=== PATIENT | female | born 1985 | race Caucasian/White ===

== ENCOUNTER 2023-10-01 12:05 | Emergency (ER) | payer OTHER, SELFPAY ==
[2023-10-01 12:10] VITALS: BP 118/72; PULSE 71; TEMP 36.4; O2SAT 97; BMI 43.9
--- NOTE | 2023-10-01 13:06 | ED.GENADUL1 ---
HPI HPI - General Adult General Chief complaint: Extremity Problem, Nontraumatic Stated complaint: LEFT BREAST PAIN Time Seen by Provider: 10/01/23 12:20 Source: patient Mode of arrival: walk-in History of Present Illness HPI narrative: The patient presented to us with a evaluation for possible lump in her left breast that she noted in the last few days, the last menstruation was 3 days ago. She denies any trauma or fall she also denies any history of breast cancer in the family Patient does not have any fever or chills and she mentioned that she does not have any primary care Related Data Allergies Allergy/AdvReac Type Severity Reaction Status Date / Time No Known Drug Allergies Allergy Verified 10/01/23 12:14 Opioid HPI Opioid Management Most Recent Opioid Data: Last Pain Scale 8 10/01/23 12:16 Review of Systems ROS Status of ROS 10 or more systems reviewed and unremarkable except as noted in history and below Exam Narrative Exam Narrative: Nurses notes and vital signs reviewed and patient is not hypoxic. Breast examination was not able to appreciate the lump but the patient was pointing to tenderness in the left lower half of the breast and there was no inversion of the nipple there was no signs of trauma there was no redness hotness or any tenderness on palpation General: Well-appearing and in no apparent distress. Skin: Warm, dry, no pallor noted. No rash. Head: Normocephalic, atraumatic. Neck: Supple, non-tender. Eye: Pupils are equal, round and EOMI. No scleral icterus. Ears, Nose, Mouth, and Throat: TM are clear, no nasal mucosal hypertrophy. Oral mucosa is moist, no posterior oropharynx erythema, uvula is mid-line Cardiovascular: Regular Rate and Rhythm without murmur, gallop or rub. Respiratory: No accessory muscle use or respiratory distress. Lungs are clear to auscultation, no wheezing, rales or rhonchi Chest Wall: no tenderness Back: No midline thoracic or lumbar vertebral tenderness. No CVA tenderness Musculoskeletal: normal ROM, no calf or popliteal tenderness, no lower extremity edema/swelling GI: Abdomen is soft, non-distended. Normal bowel sounds. No masses appreciated. No tenderness to palpation. No rebound, guarding, or rigidity noted. Neurological: A&O x4. No cranial nerve dysfunction observed. No truncal ataxia. Moves all extremities. Sensation intact. Psychiatric: Cooperative and interactive. Normal mood and affect. Constitutional Vital Signs, click to edit/add: Last Vital Signs Temp 97.6 F 10/01/23 12:10 Pulse 71 10/01/23 12:10 Resp 16 10/01/23 12:10 BP 118/72 10/01/23 12:10 Pulse Ox 97 10/01/23 12:10 O2 Del Method Room Air 10/01/23 12:10 Course Vital Signs Vital signs: Vital Signs Temperature 97.6 F 10/01/23 12:10 Pulse Rate 71 10/01/23 12:10 Respiratory Rate 16 10/01/23 12:10 Blood Pressure 118/72 10/01/23 12:10 Pulse Oximetry 97 10/01/23 12:10 Oxygen Delivery Method Room Air 10/01/23 12:10 Temperature 97.6 F 10/01/23 12:10 Pulse Rate 71 10/01/23 12:10 Respiratory Rate 16 10/01/23 12:10 Blood Pressure 118/72 10/01/23 12:10 Pulse Oximetry 97 10/01/23 12:10 Oxygen Delivery Method Room Air 10/01/23 12:10 Medical Decision Making MDM Narrative Medical decision making narrative: Right now the patient presentation is mostly secondary to fibrocystic changes but still the patient will be referred to primary care as outpatient to obtain a mammogram The patient is to follow up with primary care physician in next 2-3 days or to return to the emergency department should any of the signs or symptoms worsen or new symptoms develop. The patient agrees with the following Diagnosis and Treatment plan and the patient will be discharged home. Discharge Plan Discharge Stand Alone Forms: Portal Instructions Chief Complaint: Extremity Problem, Nontraumatic Clinical Impression: Breast lump Qualifiers: Laterality: left Breast mass location: lower outer quadrant Qualified Code(s): N63.23 - Unspecified lump in the left breast, lower outer quadrant Patient Disposition: Home, Self-Care Time of Disposition Decision: 12:42 Condition: Good Print Language: Tajik Instructions: Breast Self Exam for Women (ED), Fibrocystic Breast Changes (ED) Referrals: Physician,Non-Staff, MD [Primary Care Provider] - 1 week Discharge Date/Time: 10/01/23 12:53
== END 2023-10-01 12:53 | disposition home or self-care (01) ==
PROVIDERS: Emergency Provider Emergency Medicine
DX: N63.23 Unspecified lump in the left breast, lower outer quadrant (principal)
CPT/HCPCS: 99281

== ENCOUNTER 2023-11-06 13:45 | Outpatient (OUT) | payer OTHER, SELFPAY ==
--- NOTE | 2023-11-06 13:47 | MM_ITS ---
Patient Name: JORDYN VERDUGO MR#: [id number] : 1985 Exam Date: 11/06/2023 Ordering Doctor: ERIK AVILA CNP RADIOLOGY REPORT PROCEDURE: MM TOMOSYNTHESIS DIAGNOSTIC BI, 11/06/2023, 13:49 US BREAST LT LIMITED, 11/06/2023, 14:05 COMPARISON: None. INDICATIONS: BREAST LUMP N63.0 Calculator Name NCI Breast Cancer Risk Assessment Tool 5 Year Breast Cancer Risk 0.30% Lifetime Breast Cancer Risk 10.00% Personal Breast Cancer No Personal Ovarian Cancer No Treatments None Family Cancers None LOCATION: [facility] BREAST COMPOSITION: The breasts are heterogeneously dense,which may obscure small masses. FINDINGS: DIAGNOSTIC CATEGORY 0--INCOMPLETE: NEED ADDITIONAL IMAGING EVALUATION. The breasts are medium in size. RIGHT BREAST: No significant suspicious finding. LEFT BREAST: There is focal ill-defined increased density in the upper outer quadrant segmental in distribution deep to the area of the patient's palpable abnormality, while this could represent asymmetric fibroglandular tissue, lobular carcinoma should be excluded. Additionally identified is a 5 x 3 mm well-circumscribed reniform nodule in the upper outer quadrant, no focal abnormality identified on ultrasound to correspond to the mammographic findings. MRI follow-up is recommended RECOMMENDATIONS: BREAST MRI: BILATERAL BREASTS PLEASE NOTE: A NORMAL MAMMOGRAM DOES NOT EXCLUDE THE POSSIBILITY OF BREAST CANCER. A CLINICALLY SUSPICIOUS PALPABLE LUMP SHOULD BE BIOPSIED. Dictated by: Rodrigo Stanford MD on 11/06/2023 at 15:29 Approved by: Rodrigo Stanford MD on 11/06/2023 at 15:32
--- OUTSIDE RECORDS SUMMARY | 2023-11-06 13:59 | XMS_ITS | CCD ---
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 above: Performed By: #### A NION, SHCG, CBCWD, BMP, EGFR1, ETOHS, OSMOL #### [address] [address] ABS NEUTROPHILS 11.9 thou/mm3 High 1.8-7.7 [facility] Comment on above: Performed By: #### A NION, SHCG, CBCWD, BMP, EGFR1, ETOHS, OSMOL #### [address] [address] Basophils/100 WBC (Bld) 0.2 % Normal [facility] Comment on above: Performed By: #### A NION, SHCG, CBCWD, BMP, EGFR1, ETOHS, OSMOL #### [address] [address] Eosinophils/100 WBC (Bld) 0.3 % Normal [facility] Comment on above: Performed By: #### A NION, SHCG, CBCWD, BMP, EGFR1, ETOHS, OSMOL #### [address] [address] Erythrocyte distribution width (RBC) [Ratio] 14.4 % Normal 11.5-14.5 [facility] Comment on above: Performed By: #### A NION, SHCG, CBCWD, BMP, EGFR1, ETOHS, OSMOL #### [address] [address] Hematocrit (Bld) [Volume fraction] 41.2 % Normal 37.0-47.0 [facility] Comment on above: Performed By: #### A NION, SHCG, CBCWD, BMP, EGFR1, ETOHS, OSMOL #### [address] [address] Hemoglobin (Bld) [Mass/Vol] 13.3 g/dL Normal 12.0-16.0 [facility] Comment on above: Performed By: #### A NION, SHCG, CBCWD, BMP, EGFR1, ETOHS, OSMOL #### [address] [address] IMMATURE GRANS (IG) 0.5 % Normal [facility] Comment on above: Performed By: #### A NIRAFAEL, SHCG, CBCWD, BMP, EGFR1, ETOHS, OSMOL #### [address] [address] Lymphocytes/100 WBC (Bld) 9.8 % Normal [facility] Comment on above: Performed By: #### A NION, SHCG, CBCWD, BMP, EGFR1, ETOHS, OSMOL #### [address] [address] MCH (RBC) [Entitic mass] 27.3 pg Normal 26.0-33.0 [facility] Comment on above: Performed By: #### A NION, SHCG, CBCWD, BMP, EGFR1, ETOHS, OSMOL #### [address] [address] MCHC (RBC) [Mass/Vol] 32.3 g/dL Normal 32.2-35.5 [facility] Comment on above: Performed By: #### A NION, SHCG, CBCWD, BMP, EGFR1, ETOHS, OSMOL #### [address] [address] MCV (RBC) [Entitic vol] 84.6 fL Normal 81.0-99.0 [facility] Comment on above: Performed By: #### A NION, SHCG, CBCWD, BMP, EGFR1, ETOHS, OSMOL #### [address] [address] Monocytes/100 WBC (Bld) 6.6 % Normal [facility] Comment on above: Performed By: #### A NION, SHCG, CBCWD, BMP, EGFR1, ETOHS, OSMOL #### [address] [address] Neutrophils/100 WBC (Bld) 82.6 % Normal [facility] Comment on above: Performed By: #### A NION, SHCG, CBCWD, BMP, EGFR1, ETOHS, OSMOL #### [address] [address] NRBC 0 /100 wbc Normal [facility] Comment on above: Performed By: #### A NION, SHCG, CBCWD, BMP, EGFR1, ETOHS, OSMOL #### [address] [address] PLATELET 277 thou/mm3 Normal 130-400 [facility] Comment on above: Performed By: #### A NION, SHCG, CBCWD, BMP, EGFR1, ETOHS, OSMOL #### [address] [address] Platelet mean volume (Bld) [Entitic vol] 10.3 fL Normal 9.4-12.4 [facility] Comment on above: Performed By: #### A NION, SHCG, CBCWD, BMP, EGFR1, ETOHS, OSMOL #### [address] [address] RBC 4.87 mill/mm3 Normal 4.20-5.40 [facility] Comment on above: Performed By: #### A NION, SHCG, CBCWD, BMP, EGFR1, ETOHS, OSMOL #### [address] [address] RDW-SD 44.1 fL Normal 35.0-45.0 [facility] Comment on above: Performed By: #### A NION, SHCG, CBCWD, BMP, EGFR1, ETOHS, OSMOL #### [address] [address] WBC 14.4 thou/mm3 High 4.8-10.8 [facility] Comment on above: Performed By: #### A NION, SHCG, CBCWD, BMP, EGFR1, ETOHS, OSMOL #### [facility] [address] [place] [address] CBC with Auto Differentialon 07-13-2023 Basophils (Bld) [#/Vol] 0.0 10*3/uL [facility] Basophils/100 WBC (Bld) 0.2 % [facility] Eosinophils Absolute 0.0 [facility] Eosinophils/100 WBC (Bld) 0.3 % [facility] Erythrocyte distribution width (RBC) [Entitic vol] 44.1 fL 35.0 - 45.0 fL [facility] Erythrocyte distribution width (RBC) [Ratio] 14.4 % 11.5 - 14.5 % [facility] Hematocrit (Bld) [Volume fraction] 41.2 % 37.0 - 47.0 % [facility] Hemoglobin (Bld) [Mass/Vol] 13.3 g/dL [facility] Immature granulocytes (Bld) [#/Vol] 0.07 10*3/uL [facility] Immature granulocytes/100 WBC (Bld) 0.5 % [facility] Interpretation and review of laboratory results Abnormal [facility] Lymphocytes Absolute 1.4 [facility] Lymphocytes/100 WBC (Bld) 9.8 % [facility] MCH (RBC) [Entitic mass] 27.3 pg 26. 0 - 33.0 pg [facility] MCHC (RBC) [Mass/Vol] 32.3 g/dL [facility] MCV (RBC) [Entitic vol] 84.6 fL 81.0 - 99.0 fL [facility] Monocytes Absolute 1.0 [facility] Monocytes/100 WBC (Bld) 6.6 % [facility] Neutrophils Absolute 11.9 High [facility] Neutrophils/100 WBC (Bld) 82.6 % [facility] Nucleated RBC/100 WBC (Bld) [Ratio] 0 % /100 wbc [facility] Comment on above: Performed at [facility] [address] [place] [address] Platelet mean volume (Bld) [Entitic vol] 10.3 fL 9.4 - 12.4 fL [facility] Platelets (Bld) [#/Vol] 277 10*3/uL [facility] RBC (Bld) [#/Vol] 4.87 10*6/uL [facility] WBC (Bld) [#/Vol] 14.4 10*3/uL High [facility] DRUG ABUSE SCREENon 07-13-19 24 AMPHETAMINE/METHAMPH Negative Normal NEGATIVE [facility] Comment on above: Performed By: #### A SABA, CATARINAG, CBCWD, BMP, EGFR1, ETOHS, OSMOL #### [facility] [email or web address] [address] [place] [address] BARBITURATE Negative Normal NEGATIVE [facility] Comment on above: Performed By: #### A SABA, JARRED, CBCWD, BMP, EGFR1, ETOHS, OSMOL #### [facility] [email or web address] [address] [place] [address] Benzodiazepines Ql (U) Negative Normal NEGATIVE [facility] Comment on above: Performed By: #### A SABA, CATARINAG, CBCWD, BMP, EGFR1, ETOHS, OSMOL #### [facility] [email or web address] [address] [place] [address] Cannabinoids Screen Ql (U) Positive Normal NEGATIVE [facility] Comment on above: Performed By: #### A SABA, SHCG, CBCWD, BMP, EGFR1, ETOHS, OSMOL #### [facility] [email or web address] [address] [place] [address] COCAINE METABOLITE Positive Normal NEGATIVE [facility] Comment on above: Performed By: #### A SABA, CATARINAG, CBCWD, BMP, EGFR1, ETOHS, OSMOL #### [facility] [address] [place] [address] FENTANYL Positive Normal NEGATIVE [facility] Comment on above: Result Comment: A N egative result for a drug abuse screen test indicates that the drug concentration is below the following cutoffs: Amphetamine/Methamphetamine 1000 ng/ml Barbiturate 200 ng/ml Benzodiazapine 200 ng/ml Cannabinoids 50 ng/ml Cocaine Metabolite 300 ng/ml Opiates 300 ng/ml Oxycodone 100 ng/ml Phencyclidine 25 ng/ml Fentanyl 5 ng/ml A Positive result for a drug abuse screen test should be considered presumptive positive until/unless confirmed by another method. (Additional request) Quantitative values from a reference laboratory are available upon additional request. These results are for medical use only. Performed By: #### A SABA, SHCG, CBCWD, BMP, EGFR1, ETOHS, OSMOL #### [facility] [address] [place] [address] Opiates Ql (U) Negative Normal NEGATIVE [facility] Comment on above: Performed By: #### A SABA, SHCG, CBCWD, BMP, EGFR1, ETOHS, OSMOL #### [facility] [address] [place] [address] OXYCODONE Negative Normal NEGATIVE [facility] Comment on above: Performed By: #### A SABA, SHCG, CBCWD, BMP, EGFR1, ETOHS, OSMOL #### [facility] [address] [place] [address] Phencyclidine Ql (U) Negative Normal NEGATIVE [facility] Comment on above: Performed By: #### A SABA, SHCG, CBCWD, BMP, EGFR1, ETOHS, OSMOL #### [facility] [address] [place] [address] EKG 12-LEADon 07-13-2023 EKG 12-LEAD 113 113 182 88 324 444 60 86 70 Sinus tachycardia Possible Left atrial enlargement Borderline ECG No previous ECGs available Confirmed by RIKKI DUMONT ([id number]) on 07/14/2023 7:12:43 AM [email or web address]&Date=13-07-2023&Ti me=[email or web address]& TestType=ECG&Site=3&O utputType=PDF&Ext=PDF Normal [facility] ETHYL ALCOHOL BLOODon 2023 ETHYL ALCOHOL BLOOD 0.12 % Normal 0.00 [facility] Comment on above: Performed By: #### A SABA, SHCG, CBCWD, BMP, EGFR1, ETOHS, OSMOL #### [facility] [address] [place] [address] ETOHon 07-13-2023 Ethanol [Mass/Vol] 0.12 % 0.00 [facility] Comment on above: Performed at [facility] [address] [place] [address] GFR, ESTIMATEDon 07-13-2023 GFR/1.73 sq M.predicted MDRD (S/P/Bld) [Vol rate/Area] mL/min/{1.73_m2} Normal >60 [facility] Comment on above: Result Comment: Alisson atric calculator link https://www.kidney.org/professionals/kdoqi/gfr_calculatorped Effective Nov 18, 2021 These results are not intended for use in patients <18 years of age. eGFR results are calculated without a race factor using the 2020 CKD-EPI equation. Careful clinical correlation is recommended, particularly when comparing to results calculated using previous equations. The CKD-EPI equation is less accurate in patients with extremes of muscle mass, extra-renal metabolism of creatinine, excessive creatine ingestion, or following therapy that affects renal tubular secretion. Performed By: #### A SABA, SHCG, CBCWD, BMP, EGFR1, ETOHS, OSMOL #### [address] [address] Glomerular Filtration Rate, Estimatedon 07-13-2023 GFR/1.73 sq M.predicted MDRD (S/P/Bld) [Vol rate/Area] mL/min/{1.73_m2} - PINF [facility] Comment on above: Pediatric calculator link https://www.kidney.org/professionals/kdoqi/gfr_calculatorped Effective Nov 18, 2021 These results are not intended for use in patients <18 years of age. eGFR results are calculated without a race factor using the 2020 CKD-EPI equation. Careful clinical correlation is recommended, particularly when comparing to results calculated using previous equations. The CKD-EPI equation is less accurate in patients with extremes of muscle mass, extra-renal metabolism of creatinine, excessive creatine ingestion, or following therapy that affects renal tubular secretion. Performed at [facility] [address] [place] [address] HCG Qualitative, Serumon Beta HCG ( test) Ql Negative NEGATIVE [facility] Comment on above: Performed at [facility] [address] [place] [address] No Panel Informationon 07-12 [facility] Osmolalityon 07-13-2023 Osmolality Calc [Osmolality] 277.0 [facility] Comment on above: Performed at [facility] [address] [place] [address] TEST SERUMon 07-12 TEST SERUM Negative Normal NEGATIVE [facility] Comment on above: Performed By: #### A NION, SHCG, CBCWD, BMP, EGFR1, ETOHS, OSMOL #### [facility] [email or web address] [address] [place] [address] URINALYSIS W/ MICROon 2023 BACTERIA FEW Normal FEW/NONE SEEN [facility] Comment on above: Performed By: #### U WMIC #### [facility] [address] [place] [address] EPITHELIAL 15-20 Normal 3-5/hpf [facility] Comment on above: Performed By: #### U WMIC #### [facility] [address] [place] [address] MISCELLANEOUS TRICHOMONAS Normal [facility] Comment on above: Performed By: #### U WMIC #### [facility] [address] [place] [address] MUCOUS THREADS Normal NONE SEEN/THREA [facility] Comment on above: Performed By: #### U WMIC #### [facility] [address] [place] [address] RENAL EPITHELIAL NONE Normal NONE SEEN [facility] Comment on above: Performed By: #### U WMIC #### [facility] [address] [place] [address] CASTS >15 HYALINE Normal NONE SEEN [facility] Comment on above: Performed By: #### U WMIC #### [facility] [address] [place] [address] Crystals LM Nom (Urine sed) NONE SEEN Normal NONE SEEN [facility] Comment on above: Performed By: #### U WMIC #### [facility] [address] [place] [address] RBC 3-5 Normal 0-2/hpf [facility] Comment on above: Performed By: #### U WMIC #### [facility] [address] [facility] [place] [address] WBC 50-75 Normal 0-4/hpf [facility] Comment on above: Performed By: #### U WMIC #### [facility] [address] [place] [address] [place] [address] YEAST NONE SEEN Normal NONE SEEN [facility] Comment on above: Performed By: #### U WMIC #### [facility] [address] [place] [address] [place] [address] Bilirubin Ql (U) Negative Normal NEGATIVE [facility] Comment on above: Performed By: #### U WMIC #### [facility] [address] [place] [address] [place] [address] CHARACTER CLOUDY Abnormal CLR-SL.CLOUD [facility] Comment on above: Performed By: #### U WMIC #### [facility] [address] [place] [address] [place] [address] Color (U) YELLOW Normal YELLOW-STRAW [facility] Comment on above: Performed By: #### U WMIC #### [facility] [address] [place] [address] [place] [address] Glucose Ql (U) Negative Normal NEGATIVE [facility] Comment on above: Performed By: #### U WMIC #### [facility] [address] [place] [address], [place] [address] Hemoglobin Ql (U) MODERATE Abnormal NEGATIVE [facility] Comment on above: Performed By: #### U WMIC #### [facility] [address] [place] [address] [place] [address] Ketones Ql (U) TRACE Abnormal NEGATIVE [facility] Comment on above: Performed By: #### U WMIC #### [facility] [address] [place] [address], [place] [address] LEUKOCYTES MODERATE Abnormal NEGATIVE [facility] Comment on above: Performed By: #### U WMIC #### [address] [address] Nitrite Ql (U) Negative Normal NEGATIVE [facility] Comment on above: Performed By: #### U WMIC #### [facility] [address] [place] [address] pH (U) 6.0 [pH] Normal 5.0 - 9.0 [facility] Comment on above: Performed By: #### U WMIC #### [address] [address] Protein Ql (U) TRACE Abnormal NEGATIVE [facility] Comment on above: Performed By: #### U WMIC #### [address] [address] Specific gravity (U) [Rel density] 1.022 Normal 1.002-1.030 [facility] Comment on above: Performed By: #### U WMIC #### [address] [address] Urobilinogen Qn (U) 0.2 {Bull'U}/dL Normal 0.0 - 1. 0 [facility] Comment on above: Performed By: #### U WMIC #### [address] [address] URINE CULTUREon 07-13-2023 Bacteria identified Cx Nom (U) MICROBIOLOGY REPORT [facility], [address] [place] [address], [address] PATIENT: CINDY VARGAS LOCATION: [place] [address] : 1985 AGE: 38 SEX: F ADM: 07/13/23 Att. Physician: CHAD LARIOS Order Id: [id number] Req. Physician: CHAD LARIOS Source: urine, clean catch Site: Collected: 07/13/23 20:45 Current Antibiotics: not stated Antibiotics comment: STATUS OF ORDERED AND REPORTED TESTS URINE CULTURE FINAL 07/14/23 URINE CULTURE FINAL 07/14/23 13:35 07/14/23 No significant pathogens isolated. Growth likely represents skin juliana or distal urethral juliana. Organism 00 Growth of Contaminants Normal [facility] Comment on above: Performed By: #### U WMIC #### [facility] [address] [place] [address] Urinalysis dipstick W Reflex Microscopic panel (U)on 07-13-2023 Bacteria, UA FEW FEW/NONE SEEN [facility] Bilirubin Ql (U) Negative NEGATIVE [facility] Casts LM.LPF (Urine sed) [#/Area] >15 HYALINE NONE SEEN /lpf [facility] Character (U) CLOUDY Abnormal CLR-SL.CLOUD [facility] Color (U) YELLOW YELLOW-STRAW [facility] Crystals LM Ql (Urine sed) NONE SEEN NONE SEEN [facility] Epithelial Cells, UA 15-20 3-5/hpf /hpf [facility] Epithelial cells.renal LM.HPF (Urine sed) [#/Area] NONE NONE SEEN [facility] Fungi.yeastlike LM Ql (Urine sed) NONE SEEN NONE SEEN [facility] Glucose Auto test strip Ql (U) Negative NEGATIVE mg/dl [facility] Hemoglobin Auto test strip Ql (U) MODERATE Abnormal NEGATIVE [facility] Interpretation and review of laboratory results Abnormal [facility] Ketones Auto test strip Ql (U) TRACE Abnormal NEGATIVE [facility] Leukocyte esterase Auto test strip Ql (U) MODERATE Abnormal NEGATIVE [facility] Miscellaneous Lab Test Result TRICHOMONAS [facility] Comment on above: Performed at [facility] [address] [place] [address] Mucus Ql (Urine sed) THREADS NONE SEEN/THREA [facility] Nitrite Auto test strip Ql (U) Negative NEGATIVE [facility] pH (U) 6.0 [pH] 5.0 - 9.0 [facility] Protein (U) [Mass/Vol] TRACE Abnormal NEGAT ANGELA mg/dl [facility] RBC LM.HPF (Urine sed) [#/Area] 3-5 0-2/hpf /hpf [facility] Specific gravity Refractometry automated (U) [Rel density] 1.022 1.002 - 1.030 [facility] Urobilinogen Ql (U) 0.2 [facility] WBC LM.HPF (Urine sed) [#/Area] 50-75 0-4/hpf /hpf [facility] Urine Drug Screenon 07-13-19 24 Amphetamines Screen Ql (U) Negative NEGATIVE [facility] Barbiturates Screen Ql (U) Negative NEGATIVE [facility] Benzodiazepines Ql (U) Negative NEGATIVE [facility] Benzoylecgonine Screen Ql (U) Positive NEGATIVE [facility] Cannabinoids Screen Ql (U) Positive NEGATIVE [facility] Fentanyl Positive NEGATIVE [facility] Comment on above: A Negative result for a drug abuse screen test indicates that the drug concentration is below the following cutoffs: Amphetamine/Methamphetamine 1000 ng/ml Barbiturate 200 ng/ml Benzodiazapine 200 ng/ml Cannabinoids 50 ng/ml Cocaine Metabolite 300 ng/ml Opiates 300 ng/ml Oxycodone 100 ng/ml Phencyclidine 25 ng/ml Fentanyl 5 ng/ml A Positive result for a drug abuse screen test should be considered presumptive positive until/unless confirmed by another method. (Additional request) Quantitative values from a reference laboratory are available upon additional request. These results are for medical use only. Performed at [facility] [address] [place] [address] Opiates Screen Ql (U) Negative NEGATIVE [facility] Oxycodone Negative NEGATIVE [facility] Phencyclidine Ql (U) Negative NEGATIVE [facility] Clinical Summaryon 2022 ED Clinical Summary [address] [id number] ED Clinical Summary Person Information Name: Cindy Gallagher Susannah Hannah/[facility] Age: 37 Years : 1985 Sex: Female PCP: Marital Status: Phone: Race: White Ethnicity: Not or Language: Turkish Visit Reason: Cough; Pain in tooth; Pain in ear; cough, tooth infection, ear ache Acuity: 4 Enc Type: Emergency Med Service: Emergency Medicine Arrival: 10/05/2022 15:51:48 Discharge: 10/05/2022 17:45:00 LOS: 000 01:54 Checkin: 10/05/2022 15:51:48 Checkout: 10/05/2022 17:45:00 Dispo Type: Home or Self Care Address: [address] [facility] [address] Provider Notes: Diagnosis: 1:Acute otitis media, left; 2:Dental infection; 3:Pain, dental Problems No Problems Documented Smoking Status: Smoking Status 10 or more cigarettes (1/2 pack or more)/day in last 30 days Functional Status: Sensory Deficits: History of Falls: Mobility Assistance Prior to Admission: ADLs: Current Level of Assistance for Self-Care/Mobility: Cognitive Status: Allergies No Known Medication Allergies Laboratory or Other Results This Visit (last charted value for your 10/05/2022 visit) No Laboratory or Other Results This Visit Measurements: Height: Weight: 96.7 kg Blood Pressure: /86 mmHg BMI: Procedures No Procedures Documented Immunizations No Immunizations Documented This Visit Final Med List: New Medications [id number], [address] [place], [place] [id number], [phone] acetaminophen (Tylenol 325 mg oral tablet) 2 Tabs Oral (given by mouth) every 6 hours as needed as needed for pain for 7 Days. not to exceed 3000 mg/day. Refills: 0. Last Dose: ____ amoxicillin-clavulana te (Augmentin 875 mg-125 mg oral tablet) 1 Tabs Oral (given by mouth) 2 times a day for 14 Days. Refills: 0. Last Dose: ____ chlorhexidine topical (Peridex 0.12% mucous membrane liquid) 15 Milliliter Oral (given by mouth) 2 times a day for 7 Days. swish and spit; do not swallow. Refills: 0. Last Dose: ____ diphenhyd/lidocaine/A Chapito/MgOH/simeth topical (FIRST Mouthwash BLM mucous membrane suspension) 15 Milliliter Oral (given by mouth) 4 times a day as needed mouth sore pain for 7 Days. Refills: 0. Last Dose: ____ ibuprofen (ibuprofen 200 mg oral tablet) 2 Tabs Oral (given by mouth) every 6 hours as needed as needed for pain for 7 Days. Refills: 0. Last Dose: ____ [id number], [address], [place] [id number], [phone] acetaminophen (Tylenol 325 mg oral tablet) 2 Tabs Oral (given by mouth) every 6 hours as needed as needed for pain for 7 Days. not to exceed 3000 mg/day. Refills: 0. amoxicillin-clavulana te (Augmentin 875 mg-125 mg oral tablet) 1 Tabs Oral (given by mouth) 2 times a day for 14 Days. Refills: 0. chlorhexidine topical (Peridex 0.12% mucous membrane liquid) 15 Milliliter Oral (given by mouth) 2 times a day for 7 Days. swish and spit; do not swallow. Refills: 0. diphenhyd/lidocaine/A Chapito/MgOH/simeth topical (FIRST Mouthwash BLM mucous membrane suspension) 15 Milliliter Oral (given by mouth) 4 times a day as needed mouth sore pain for 7 Days. Refills: 0. ibuprofen (ibuprofen 200 mg oral tablet) 2 Tabs Oral (given by mouth) every 6 hours as needed as needed for pain for 7 Days. Refills: 0. Care Team Members: Attending Physician: René Gutierrez Consulting Physician: Referring Physician: Provider Role Assigned Unassigned René Gutierrez ED MidLevel 10/05/2022 16:00:56 Follow up: With: Address: When: Please make sure you keep your appointment with dental care provider, as planned for extraction of teeth in the next 12 days. With: Address: When: Please contact physician referral line to establish care with PCP, unless previously scheduled appointment will be. With: Address: When: If you develop uncontrolled pain, despite use of ssxt-ctu-uirpnne agents as prescribed, progressive difficulty breathing, chest discomfort, mental status change, bleeding, return for acute evaluation. With: Address: When: OTC pain control -adult Tylenol/Motrin Comments: Recommend use of iosu-zqf-suawhpi agents such as acetaminophen, 650 mg, by mouth, every 6 hours as needed. If taking 1,000mg dose, then only take acetaminophen every 8 hours/3 times per day, not to exceed 3000 mg of acetaminophen daily. May use ibuprofen, 400-600mg, by mouth, every 6 hours as needed; use caution not to consume NSAIDs for extended duration. With: Address: When: *Physician Referral Line Comments: Contact Physician Referral Line at [phone] to schedule your first visit and establish with a Primary Care Provider With: Address: When: *Emergency Department , only if needed Comments: Return to the Emergency Department immediately for any new or worsening symptoms (more content not included)... Normal [facility] ED Note-Physicianon 10-06-19 ED Note-Physician Chief Complaint PT states she seen mobile clinic on at [facility] and dx with left ear infection and respiratory infection and was suppose to be prescribed antibiotic and inhaler. Pt states they never prescribed it and now right ear is hurting with tooth History of Present Illness Patient is a 37-year-old female who presents to the emergency department regarding dental pain, left upper maxillary region, approximately near tooth #2 and 3, as well as significant ear pain on left ear, and now some ear discomfort in right ear. She describes her pain is currently 10 out of 10. She describes she is currently staying at the [facility], she was seen by a provider at the visiting clinic was planned to be started on antibiotics, however no prescription was sent. She is currently on a treatment for hepatitis C, she thinks starts with M (likely Mavyret) but she does know the exact name. Due to finances, she has not used any Tylenol or ibuprofen, for symptom control, however she has not been able to afford them. No fever or chills. Mild changes to respiratory status, without progressive dyspnea, no chest pain. She has a mild cough. She denies any nausea or vomiting. No hemoptysis or hematemesis. No changes to bladder or bowel control function. She has had a tubal ligation in the past, no concern for . Last menstrual cycle was approximately 1 week ago. Review of Systems Negative other than pertinent positives on the above HPI Physical Exam CONSTITUTIONAL: [well appearing, in mild distress] SKIN: [Warm, dry, and intact without rash] EYES: [extraocular movements are grossly intact, clear conjunctiva] HENT: Mouth: evaluation of upper right maxillary region approximately near tooth #2-3, erythema and mild edema seen in gingival region. Without significant bulging. Left TM, erythema and bulging is identified. Right TM, no erythema or bulging is appreciated. [Normocephalic, atraumatic] NECK: [no obvious swelling, normal range of motion] PULMONARY: [normal chest rise and fall, no respiratory distress or stridor CARDIOVASCULAR: [regular rate, distal extremities are warm and well perfused] GASTROINSTESTINAL: [nondistended, non-tender] GENITOURINARY: [deferred] NEUROLOGIC: [normal speech, moves all extremities] MUSCULOSKELETAL: [no gross deformities, atraumatic] PSYCHIATRIC: [normal mood and affect] Vitals & Measurements T: 37.1 ?C (Oral) HR: 69 (Peripheral) RR: 22 BP: 134/86 SpO2: 97% HT: 162.2 cm WT: 96.7 kg (Dosing) Additional Vitals No qualifying data available. Procedure No qualifying data available. ASA Documentation Medical Decision Making This report has been created using voice recognition software. It may contain minor errors which are inherent in voice recognition technology. Patient Presentation: Patient is a 37-year-old female who presents to the emergency department regarding dental pain, left upper maxillary region, approximately near tooth #2 and 3, as well as significant ear pain on left ear, and now some ear discomfort in right ear. She describes her pain is currently 10 out of 10. She describes she is currently staying at the [facility], she was seen by a provider at the visiting clinic was planned to be started on antibiotics, however no prescription was sent. She is currently on a treatment for hepatitis C, she thinks starts with M (likely Mavyret) but she does know the exact name. Due to finances, she has not used any Tylenol or ibuprofen, for symptom control, however she has not been able to afford them. No fever or chills. Mild changes to respiratory status, without progressive dyspnea, no chest pain. She has a mild cough. She denies any nausea or vomiting. No hemoptysis or hematemesis. No changes to bladder or bowel control function. She has had a tubal ligation in the past, no concern for . Last menstrual cycle was approximately 1 week ago. Initial MDM: Patient is an adult female who otherwise appears stable, in mild distress. Physical examination reveals: HENT: Mouth: evaluation of upper right maxillary region approximately near tooth #2-3, erythema and mild edema seen in gingival region. Without significant bulging. Left TM, erythema and bulging is identified. Right TM, no erythema or bulging is appreciated. [Normocephalic, atraumatic] NECK: [no obvious swelling, normal range of motion] Discussed with patient we will proceed with medication management. Differential Diagnosis: Acute otitis media, dental infection, dental pain, dental caries Data and analysis: ? Patients chart reviewed historically as needed ED Course / Patient Re-evaluation: Patient was administered Toradol 30 mg, IM, x1. Reviewed with in-house pharmacist patient's current hepatitis C treatment, Mavyret prescription, and if potential interactions may arise with additional prescribed medications. First BLM oral solution, 15 mL, p.o., to be used 4 times per day as needed for comfort. Augmentin 875/125 (more content not included)... Normal [facility] Laboratory - Microbiology an d Antimicrobial susceptibilityOrdered By: Concetta Aguirre on 03-07-2021 SARS-CoV-2 (COVID-19) RNA CUCA+probe Ql (Resp) Not detected (Not Detected ) [facility] Work Phone: Comment on above: Note: This nucleic a yara amplification test was developed and itsperformance characteristics determined by [facility]. Nucleic acid amplification tests include RT-PCR and TMA. This test has not been FDA cleared orapproved. This test has been authorized by FDA under anEmergency Use Authorization (EUA). This test is onlyauthorized for the duration of time the declaration thatcircumstances exist justifying the authorization of theemergency use of in vitro diagnostic tests for detection [id number] virus and/or diagnosis of COVID-19 infectionunder section 564(b)(1) of the Act, 21 U.S.C. 360bbb-3(b)(1), unless the authorization is terminated or revokedsooner.When diagnostic testing is negative, the possibility of afalse negative result should be considered in the contextof a patient's recent exposures and the presence ofclinical signs and symptoms consistent with COVID-19. Anindividual without symptoms of COVID-19 and who is notshedding SARS-CoV-2 virus would expect to have a negative(not detected) result in this assay. SARS-CoV-2 (COVID-19) RNA CUCA+probe Ql (Unsp spec) Performed [facility] Work Phone: HCV RNA,Quant,PCRon 08-28-19 21 HCV RNA,Quant,PCR Specimen Description .PLASMA Special Requests NOT REPORTED Direct Exam HCV RNA NOT DETECTED This test is a sensitive method for quantitating HCV RNA viral loads in plasma. It utilizes RT-PCR in the FDA approved Amandeep Ampliprep/Taqman 48 System. This test is intended for detecting and quantifying HCV RNA viral loads in the range of 15 IU/mL to 20,000,000 IU/mL (1.18 log IU/mL to 7.30 log IU/mL). Patients should have confirmed HCV infection prior to RNA quantification. This test has been developed to monitor disease progression and efficacy of anti-HCV drug therapy. This test has been optimized for HCV genotypes 1-6. Report Status FINAL 08/27/2020 Normal [facility] Comment on above: Performed By: #### H CVQ #### [facility] [address] [place], [place] [phone] Nursing Educator: Werner Kaye MD [facility] [address] [place] [address] [place] [address] Nursing Educator: Little Otoole MD CBCon 08-21-2020 Erythrocyte distribution width (RBC) [Ratio] 15.9 % High 11.8-14.4 [facility] Comment on above: Performed By: #### C P, CBC, HCG #### [facility] [address] [place] [address] Nursing Educator: Little Otoole MD #### HIVCMB, PHEP #### [facility] [employer] [address] [place] [address] Nursing Educator: Werner Kaye MD Hematocrit (Bld) [Volume fraction] 38.5 % Normal 36.3-47.1 [facility] Comment on above: Performed By: #### C P, CBC, HCG #### [address] [place] [phone] Nursing Educator: Little Otoole MD #### HIVCMB, PHEP #### [address] [phone] Nursing Educator: Werner Kaye MD Hemoglobin (Bld) [Mass/Vol] 11.8 g/dL Low 11.9-15.1 [facility] Comment on above: Performed By: #### C P, CBC, HCG #### [address] [place] [phone] Nursing Educator: Little Otoole MD #### HIVCMB, PHEP #### [address] [id number] Nursing Educator: Werner Kaye MD MCH (RBC) [Entitic mass] 23.9 pg Low 25.2-33.5 [facility] Comment on above: Performed By: #### C P, CBC, HCG #### [address] [place] [address] Nursing Educator: Little Otoole MD #### HIVCMB, PHEP #### [address] [id number] Nursing Educator: Werner Kaye MD MCHC (RBC) [Mass/Vol] 30.6 g/dL Normal 28.4-34.[address] [facility] Comment on above: Performed By: #### C P, CBC, HCG #### [address] [place] [address] Nursing Educator: Little Otoole MD #### HIVCMB, PHEP #### [address] [id number] Nursing Educator: Werner Kaye MD MCV (RBC) [Entitic vol] 78.1 fL Low 82.6-102.9 M [facility] Comment on above: Performed By: #### C P, CBC, HCG #### [address] [place] [address] Nursing Educator: Little Otoole MD #### HIVCMB, PHEP #### [address] [phone] Nursing Educator: Werner Kaye MD NRBC Automated 0.0 per 100 WBC Normal 0.0 [facility] Comment on above: Performed By: #### C P, CBC, HCG #### [address] [place] [phone] Nursing Educator: Little Otoole MD #### HIVCMB, PHEP #### [place] [address] Nursing Educator: Werner Kaye MD Platelet mean volume (Bld) [Entitic vol] 9.6 fL Normal 8.1-13.5 [facility] Comment on above: Performed By: #### C P, CBC, HCG #### [address] [place] [id number] Nursing Educator: Little Otoole MD #### HIVCMB, PHEP #### [place] [address] Nursing Educator: Werner Kaye MD Platelets (Bld) [#/Vol] 271 10*3/uL Normal 138-453 [facility] Comment on above: Performed By: #### C P, CBC, HCG #### [address] [place] [address] Nursing Educator: Little Otoole MD #### HIVCMB, PHEP #### [address] [id number] Nursing Educator: Werner Kaye MD RBC (Bld) [#/Vol] 4.93 10*6/uL Normal 3.95-5.11 [facility] Comment on above: Performed By: #### C P, CBC, HCG #### [facility] [address] [place] [address] Nursing Educator: Little Otoole MD #### HIVCMB, PHEP #### [facility] [address] [place], [place] [phone] Nursing Educator: Werner Kaye MD WBC (Bld) [#/Vol] 5.9 10*3/uL Normal 3.5-11.3 [facility] Comment on above: Performed By: #### C P, CBC, HCG #### [address] [place] [address] Nursing Educator: Little Otoole MD #### HIVCMB, PHEP #### [facility] [address] [place], [place] [phone] Nursing Educator: Werner Kaye MD Comp Metabolic Profon 2020 (cont.) [facility] Comment on above: Result Comment: Aver age GFR for 30-39 years old: 107 mL/min/1.73sq m Chronic Kidney Disease: <60 mL/min/1.73sq m Kidney failure: <15 mL/min/1.73sq m eGFR calculated using average adult body mass. Additional eGFR calculator available at: http://www.[employer].com/multiple_crcl_2012.htm Performed By: #### C P, CBC, HCG #### [facility] [address] [place] [address] [place] [address] Nursing Educator: Little Otoole MD #### HIVCMB, PHEP #### [facility] [address] [place], [place] [phone] Nursing Educator: Werner Kaye MD Albumin [Mass/Vol] 3.5 g/dL Normal 3.5-5.2 [facility] Comment on above: Performed By: #### C P, CBC, HCG #### [facility] [address] [place], [place] [phone] Nursing Educator: Little Otoole MD #### HIVCMB, PHEP #### [address] [address] Nursing Educator: Werner Kaye MD Albumin/Glob Ratio 1.1 Normal 1.0-2.5 [facility] Comment on above: Performed By: #### C P, CBC, HCG #### [facility] [address] [place], [place] [phone] Nursing Educator: Little Otoole MD #### HIVCMB, PHEP #### [address] [phone] Nursing Educator: Werner Kaye MD Alkaline Phos 56 U/L Normal 35-104 [facility] Comment on above: Performed By: #### C P, CBC, HCG #### [facility] [address] [place], [place] [phone] Nursing Educator: Little Otoole MD #### HIVCMB, PHEP #### [address] [address] Nursing Educator: Werner Kaye MD ALT [Catalytic activity/Vol] 24 U/L Normal 5-33 [facility] Comment on above: Performed By: #### C P, CBC, HCG #### [facility] [address] [place], [place] [phone] Nursing Educator: Little Otoole MD #### HIVCMB, PHEP #### [address] [address] Nursing Educator: Werner Kaye MD Anion gap [Moles/Vol] 9 mmol/L Normal 9-[address] [facility] Comment on above: Performed By: #### C P, CBC, HCG #### [facility] [address] [place], [place] [phone] Nursing Educator: Little Otoole MD #### HIVCMB, PHEP #### [address] [address] Nursing Educator: Werner Kaye MD AST [Catalytic activity/Vol] 57 U/L High <32 [facility] Comment on above: Performed By: #### C P, CBC, HCG #### [facility] [address] [place], [place] [phone] Nursing Educator: Little Otoole MD #### HIVCMB, PHEP #### [address] [address] Nursing Educator: Werner Kaye MD Bilirubin [Mass/Vol] 0.32 mg/dL Normal 0.3-1.2 [facility] Comment on above: Performed By: #### C P, CBC, HCG #### [facility] [address] [place], [place] [phone] Nursing Educator: Little Otoole MD #### HIVCMB, PHEP #### [address] [address] Nursing Educator: Werner Kaye MD BUN/CRE Ratio 14 Normal 9-20 [facility] Comment on above: Performed By: #### C P, CBC, HCG #### [facility] [address] [place], [place] [phone] Nursing Educator: Little Otoole MD #### HIVCMB, PHEP #### [address] [address] Nursing Educator: Werner Kaye MD Calcium [Mass/Vol] 9.3 mg/dL Normal 8.6-10.4 [facility] Comment on above: Performed By: #### C P, CBC, HCG #### [facility] [address] [place], [place] [phone] Nursing Educator: Little Otoole MD #### HIVCMB, PHEP #### [place] [id number] [place], [place] [phone] Nursing Educator: Werner Kaye MD Chloride [Moles/Vol] 98 mmol/L Normal 98-107 [facility] Comment on above: Performed By: #### C P, CBC, HCG #### [facility] [address] [place] [address] Nursing Educator: Little Otoole MD #### HIVCMB, PHEP #### [address] [phone] Nursing Educator: Werner Kaye MD CO2 [Moles/Vol] 27 mmol/L Normal 20-31 [facility] Comment on above: Performed By: #### C P, CBC, HCG #### [facility] [address] [place] [address] Nursing Educator: Little Otoole MD #### HIVCMB, PHEP #### [address] [phone] Nursing Educator: Werner Kaye MD Creatinine [Mass/Vol] 0.66 mg/dL Normal 0.50-0.[address] [facility] Comment on above: Performed By: #### C P, CBC, HCG #### [facility] [address] [place] [address] Nursing Educator: Little Otoole MD #### HIVCMB, PHEP #### [address] [phone] Nursing Educator: Werner Kaye MD GFR, Amer >60 Normal >60 [facility] Comment on above: Performed By: #### C P, CBC, HCG #### [facility] [address] [place], [place] [phone] Nursing Educator: Little Otoole MD #### HIVCMB, PHEP #### [place] [id number] [place], [place] [phone] Nursing Educator: Werner Kaye MD GFR,non Amer >60 Normal >60 [facility] Comment on above: Performed By: #### C P, CBC, HCG #### [address] [place], [place] [phone] Nursing Educator: Little Otoole MD #### HIVCMB, PHEP #### [address] [phone] Nursing Educator: Werner Kaye MD Glucose [Mass/Vol] 106 mg/dL High 70-99 [facility] Comment on above: Performed By: #### C P, CBC, HCG #### [address] [place], [place] [phone] Nursing Educator: Little Otoole MD #### HIVCMB, PHEP #### [address] [phone] Nursing Educator: Werner Kaye MD Potassium [Moles/Vol] 3.7 mmol/L Normal 3.7-5.[address] [facility] Comment on above: Performed By: #### C P, CBC, HCG #### [address] [place], [place] [phone] Nursing Educator: Little Otoole MD #### HIVCMB, PHEP #### [address] [phone] Nursing Educator: Werner Kaye MD Protein [Mass/Vol] 6.6 g/dL Normal 6.4-8.3 [facility] Comment on above: Performed By: #### C P, CBC, HCG #### [address] [place], [place] [phone] Nursing Educator: Little Otoole MD #### HIVCMB, PHEP #### [place] [address] [place], [place] [phone] Nursing Educator: Werner Kaye MD Sodium [Moles/Vol] 134 mmol/L Low 135-144 [facility] Comment on above: Performed By: #### C P, CBC, HCG #### [address] [place], [place] [phone] Nursing Educator: Little Otoole MD #### HIVCMB, PHEP #### [address] [phone] Nursing Educator: Werner Kaye MD Staging: Normal [facility] Comment on above: Result Comment: Stag e 1: Some kidney damage normal GFR Stage 2: Mild kidney damage GFR 60-89 Stage 3: Moderate kidney damage GFR 30-59 Stage 4: Severe kidney damage GFR 15-29 Stage 5: Severe kidney damage GFR <15 ESRD - chronic treatment by dialysis or transplant Performed By: #### C P, CBC, HCG #### [address] [place], [place] [phone] Nursing Educator: Little Otoole MD #### HIVCMB, PHEP #### [address] [address] Nursing Educator: Werner Kaye MD Urea nitrogen [Mass/Vol] 9 mg/dL Normal 6-20 [facility] Comment on above: Performed By: #### C P, CBC, HCG #### [address] [place], [place] [phone] Nursing Educator: Little Otoole MD #### HIVCMB, PHEP #### [address] [phone] Nursing Educator: Werner Kaye MD HCG Screen, Bloodon 08-22-19 21 HCG Screen, Blood Negative Normal [facility] [place] Comment on above: Result Comment: Spec imens with hCG levels near the threshold of the test (25 mIU/mL) may give a negative or indeterminate result. In such cases, another test should be performed with a new specimen in 48-72 hours. If early is suspected clinically in this setting, correlation with quantitative serum b-hCG level is suggested. [facility] has confirmed the use of plasma for this test. This has not been cleared or approved by the U.S. Food and Drug Administration. The FDA has determined that such clearance is not necessary. Performed By: #### C P, CBC, HCG #### [address] [place] [address] Nursing Educator: Little Otoole MD #### HIVCMB, PHEP #### [address] [phone] Nursing Educator: Werner Kaye MD HIV Ag/Abon 08-21-2020 HIV Ag/Ab Non-Reactive Normal NR [facility] Comment on above: Result Comment: No l aboratory evidence of HIV infection. If acute HIV infection is suspected, consider testing for HIV-1 RNA. Performed By: #### C P, CBC, HCG #### [address] [place] [address] Nursing Educator: Little Otoole MD #### HIVCMB, PHEP #### [address] [phone] Nursing Educator: Werner Kaye MD Hepatitis Acute [facility] 08-21 Hep A Ab,IgM Non-Reactive Normal NR [facility] Comment on above: Performed By: #### C P, CBC, HCG #### [address] [place] [address] Nursing Educator: Little Otoole MD #### HIVCMB, PHEP #### [address] [phone] Nursing Educator: Werner Kaye MD Hep B Core Ab,IgM Non-Reactive Normal [facility] Comment on above: Performed By: #### C P, CBC, HCG #### [facility] [address] [place] [address] [place] [address] Nursing Educator: Little Otoole MD #### HIVCMB, PHEP #### [address] [phone] Nursing Educator: Werner Kaye MD Hep B Surf Ag Non-Reactive Normal [facility] Comment on above: Performed By: #### C P, CBC, HCG #### [address] [place] [address] Nursing Educator: Little Otoole MD #### HIVCMB, PHEP #### [address] [phone] Nursing Educator: Werner Kaye MD Hep C Ab Reactive Abnormal [facility] Comment on above: Result Comment: The hepatitis C procedure used in our laboratory is a Chemiluminescent test specific for three recombinant HCV antigens. A negative anti-HCV result indicates that the antibodies to hepatitis C virus are not present at this time. Individuals with reactive anti-HCV should be considered infected and infectious until proven otherwise. Confirmation of all equivocal or reactive results is recommended by ordering HCV RNA by PCR. Results reported to the appropriate Health Department Performed By: #### C P, CBC, HCG #### [address] [place] [address] Nursing Educator: Little Otoole MD #### HIVCMB, PHEP #### [id number] [place] [address] Nursing Educator: Werner Kaye MD INFLUENZA A AND B AGon 03-28 INFLUANEGH SEE BELOW Normal [facility] Comment on above: Result Comment: Nega tive for Flu A protein angiten. Infection due to Flu A cannot be ruled out. Flu A angiten in the sample may be below the detection limit of the test. Performed By: #### I NFLUAB ####[facility] [id number] [place] INFLUBNEGH SEE BELOW Normal [facility] Comment on above: Result Comment: Nega tive for Flu B protein antigen. Infection due to Flu B cannot be ruled out. Flu B antigen in the sample may be below the detection limit of the test. Performed By: #### I NFLUAB ####[facility] [id number] INFLUENZA A AG Negative Normal NEGATIVE SEE COMMENT [facility] Comment on above: Performed By: #### I NFLUAB ####[facility] Sjvil[address] INFLUENZA B AG Negative Normal NEGATIVE SEE COMMENT [facility] Comment on above: Performed By: #### I NFLUAB ####[facility] [address] [place] [address] INTERNAL CONTROLS Within Normal Limits Normal Wi thin Normal Limits [facility] Comment on above: Performed By: #### I NFLUAB ####[facility] [address] [place] [address] XR CHEST 2 Von 03-28-2017 XR CHEST 2 [address] [place] [address] Patient: CINDY MONROE Exam Date: 03/28/2017DOB: 1985 Gender:F : ODILIA ZENG Admission #: [id number] : Order #: [id number] HERE TO VIEW EXAM RADIOLOGY REPORT PROCEDURE: RADIOGRAPH CHEST 2 VIEWS COMPARISON: None. INDICATIONS: Acute shortness of breath, wheezing and cough FINDINGS: LUNGS: No significant pulmonary parenchymal abnormalities. VASCULATURE: No increased pulmonary vasculature. PLEURA: No pneumothorax, effusion, or pleural thickening. CARDIAC: No cardiomegaly or cardiac silhouette abnormality. MEDIASTINUM: No visible mass or adenopathy. BONES: No fracture or visible bone lesion. OTHER: Negative. CONCLUSION: No acute disease. Dictated by: Little Garcia M.D. on 03/29/2017 at 07:19 Approved by: Little Garcia M.D. on 03/29/2017 at 07:[address] [facility] STREP SCREEN CONFIRMATIONon 09-16-2016 STREP SCREEN CONFIRMATION Culture Observ ations: Final; See scanned report to follow in HPF Normal [facility] Comment on above: Performed By: #### S SCRN, STREPC ####[facility] [id number] [place] STREPT SCREENon 09-16-2016 STREP SCREEN A Negative Normal NEGATIVE [facility] Comment on above: Performed By: #### S SCRN, STREPC ####[facility] [id number] [place] Vital Signs Date Time Vital Sign Value Performing Clinician Payton fowler 08-27-2023 21:03-0400 Diastolic blood pressure 74 mm[Hg] [facility] 08-27-2023 21:03-0400 Heart rate 78 /min [facility] 08-27-2023 21:03-0400 Mean blood pressure 91 mm[Hg] [facility] 08-27-2023 21:03-0400 Respiratory rate 16 /min [facility] 08-27-2023 21:03-0400 SaO2% (BldA) [Mass fraction] 97 % [facility] 08-27-2023 21:03-0400 Systolic blood pressure 126 mm[Hg] [facility] 08-27-2023 20:31-0400 Diastolic blood pressure 69 mm[Hg] [facility] 08-27-2023 20:31-0400 Heart rate 80 /min [facility] 08-27-2023 20:31-0400 Mean blood pressure 82 mm[Hg] [facility] 08-27-2023 20:31-0400 Respiratory rate 16 /min [facility] 08-27-2023 20:31-0400 SaO2% (BldA) [Mass fraction] 94 % [facility] 08-27-2023 20:31-0400 Systolic blood pressure 109 mm[Hg] [facility] 08-27-2023 20:00-0400 Diastolic blood pressure 80 mm[Hg] [facility] 08-27-2023 20:00-0400 Heart rate 73 /min [facility] 08-27-2023 20:00-0400 Mean blood pressure 93 mm[Hg] [facility] 08-27-2023 20:00-0400 SaO2% (BldA) [Mass fraction] 98 % [facility] 08-27-2023 20:00-0400 Systolic blood pressure 120 mm[Hg] [facility] 08-27-2023 19:45-0400 Heart rate 79 /min [facility] 08-27-2023 18:29-0400 Body temperature 98.24 [degF] [facility] 08-27-2023 18:29-0400 Heart rate 88 /min [facility] 07-13-2023 21:33-0400 Diastolic blood pressure 76 mm[Hg] Chad Larios DO Work Phone: [facility] 07-13-2023 21:33-0400 Heart rate 116 /min Chad Larios DO Work Phone: [facility] 07-13-2023 21:33-0400 Respiratory rate 22 /min Chad Larios DO Work Phone: [facility] 07-13-2023 21:33-0400 SaO2% (BldA) [Mass fraction] 96 % Chad Larios DO Work Phone: [facility] 07-13-2023 21:33-0400 Systolic blood pressure 128 mm[Hg] Chad Larios DO Work Phone: [facility] 07-13-2023 20:51-0400 Body temperature 97.81 [degF] Chad Larios DO Work Phone: [facility] 07-26-2021 15:31-0400 Body height 162.56 cm Concetta Aguirre CNP Work Phone: [facility] Work Phone: 07-26-2021 15:31-0400 Body mass index (BMI) [Ratio] 28.7 kg/m2 Concetta Aguirre CNP Work Phone: [facility] Work Phone: 07-26-2021 15:31-0400 Body surface area Derived from formula 1.81 m2 Concetta Aguirre CNP Work Phone: [facility] Work Phone: 07-26-2021 15:31-0400 Body temperature 97.5 [degF] Concetta Aguirre CNP Work Phone: [facility] Work Phone: 07-26-2021 15:31-0400 Body weight 75.75 kg Concetta Aguirre CNP Work Phone: [facility] Work Phone: 07-26-2021 15:31-0400 Diastolic blood pressure 68 mm[Hg] Concetta Aguirre CNP Work Phone: [facility] Work Phone: 07-26-2021 15:31-0400 Heart rate 95 /min Concetta Aguirre CNP Work Phone: [facility] Work Phone: 07-26-2021 15:31-0400 SaO2% (BldA) [Mass fraction] 98 % Concetta Aguirre CNP Work Phone: [facility] Work Phone: 07-26-2021 15:31-0400 Systolic blood pressure 108 mm[Hg] Concetta Aguirre CNP Work Phone: [facility] Work Phone: 07-25-2021 15:24-0400 Body height 162.56 cm Concetta Aguirre CNP Work Phone: [facility] Work Phone: 07-25-2021 15:24-0400 Body mass index (BMI) [Ratio] 28.4 kg/m2 Concetta Aguirre CNP Work Phone: [facility] Work Phone: 07-25-2021 15:24-0400 Body surface area Derived from formula 1.81 m2 Concetta Aguirre CNP Work Phone: [facility] Work Phone: 07-25-2021 15:24-0400 Body temperature 97.1 [degF] Concetta Aguirre CNP Work Phone: [facility] Work Phone: 07-25-2021 15:24-0400 Body weight 75.12 kg Concetta Aguirre CNP Work Phone: [facility] Work Phone: 07-25-2021 15:24-0400 Diastolic blood pressure 60 mm[Hg] Concetta Aguirre CNP Work Phone: [facility] Work Phone: 07-25-2021 15:24-0400 Heart rate 89 /min Concetta Aguirre CNP Work Phone: [facility] Work Phone: 07-25-2021 15:24-0400 SaO2% (BldA) [Mass fraction] 99 % Concetta Aguirre CNP Work Phone: [facility] Work Phone: 07-25-2021 15:24-0400 Systolic blood pressure 94 mm[Hg] Concetta Aguirre CNP Work Phone: [facility] Work Phone: 10-23-2020 14:17-0400 Body height 162.56 cm Yajaira Garrett CNP Work Phone: [facility] Work Phone: 10-23-2020 14:17-0400 Body mass index (BMI) [Ratio] 26.8 kg/m2 Yajaira Garrett CNP Work Phone: [facility] Work Phone: 10-23-2020 14:17-0400 Body surface area Derived from formula 1.76 m2 Yajaira Garrett CNP Work Phone: [facility] Work Phone: 10-23-2020 14:17-0400 Body temperature 98.6 [degF] Yajaira Garrett CNP Work Phone: [facility] Work Phone: 10-23-2020 14:17-0400 Body weight 70.76 kg Yajaira Garrett CNP Work Phone: [facility] Work Phone: 10-23-2020 14:17-0400 Diastolic blood pressure 72 mm[Hg] Yajaira Garrett 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 Work Phone: [facility] Work Phone: 10-23-2020 14:17-0400 Respiratory rate 12 /min Yajaira Garrett 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 Work Phone: [facility] Work Phone: 10-23-2020 14:17-0400 Systolic blood pressure 110 mm[Hg] Yajaira Garrett 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 Work Phone: [facility] Work Phone: 10-18-2020 16:17-0400 Body height 162.56 cm Yajaira Garrett CNP Work Phone: [facility] Work Phone: 10-18-2020 16:17-0400 Body mass index (BMI) [Ratio] 26.8 kg/m2 Yajaira Garrett CNP Work Phone: [facility] Work Phone: 10-18-2020 16:17-0400 Body surface area Derived from formula 1.76 m2 Yajaira Garrett CNP Work Phone: [facility] Work Phone: 10-18-2020 16:17-0400 Body temperature 97.7 [degF] Yajaira Garrett CNP Work Phone: [facility] Work Phone: 10-18-2020 16:17-0400 Body weight 70.76 kg Yajaira Garrett CNP Work Phone: [facility] Work Phone: 10-18-2020 16:17-0400 Diastolic blood pressure 70 mm[Hg] Yajaira Garrett CNP Work Phone: [facility] Work Phone: 10-18-2020 16:17-0400 Heart rate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
--- NOTE | 2023-11-06 14:03 | US_ITS ---
Patient Name: JORDYN VERDUGO MR#: [id number] : 1985 Exam Date: 11/06/2023 Ordering Doctor: ERIK AVILA CNP RADIOLOGY REPORT PROCEDURE: MM TOMOSYNTHESIS DIAGNOSTIC BI, 11/06/2023, 13:49 US BREAST LT LIMITED, 11/06/2023, 14:05 COMPARISON: None. INDICATIONS: BREAST LUMP N63.0 Calculator Name NCI Breast Cancer Risk Assessment Tool 5 Year Breast Cancer Risk 0.30% Lifetime Breast Cancer Risk 10.00% Personal Breast Cancer No Personal Ovarian Cancer No Treatments None Family Cancers None LOCATION: [facility] BREAST COMPOSITION: The breasts are heterogeneously dense,which may obscure small masses. FINDINGS: DIAGNOSTIC CATEGORY 0--INCOMPLETE: NEED ADDITIONAL IMAGING EVALUATION. The breasts are medium in size. RIGHT BREAST: No significant suspicious finding. LEFT BREAST: There is focal ill-defined increased density in the upper outer quadrant segmental in distribution deep to the area of the patient's palpable abnormality, while this could represent asymmetric fibroglandular tissue, lobular carcinoma should be excluded. Additionally identified is a 5 x 3 mm well-circumscribed reniform nodule in the upper outer quadrant, no focal abnormality identified on ultrasound to correspond to the mammographic findings. MRI follow-up is recommended RECOMMENDATIONS: BREAST MRI: BILATERAL BREASTS PLEASE NOTE: A NORMAL MAMMOGRAM DOES NOT EXCLUDE THE POSSIBILITY OF BREAST CANCER. A CLINICALLY SUSPICIOUS PALPABLE LUMP SHOULD BE BIOPSIED. Dictated by: Rodrigo Stanford MD on 11/06/2023 at 15:29 Approved by: Rodrigo Stanford MD on 11/06/2023 at 15:32
== END 2023-11-06 13:46 | disposition home or self-care (01) ==
LOC: MAMMO 13:45
PROVIDERS: PCP Nurse Practitioner Family; Visit Provider Nurse Practitioner Family
DX: N63.21 Unspecified lump in the left breast, upper outer quadrant (principal); N63.0 Unspecified lump in unspecified breast
CPT/HCPCS: 76642; 77066; G0279